=== PATIENT | male | born 1990 | race Caucasian/White ===

== ENCOUNTER 2018-06-10 17:00 | Emergency (ER) | payer OTHER ==
[~2018-06-10] VITALS: Wt 79.4 kg
[2018-06-10] MEDS ORDERED: ANAPROX DS550 MG PO (17:49)
== END 2018-06-10 17:50 | disposition home or self-care (01) ==
LOC: ED 17:00
DX: S62.615A Displaced fracture of proximal phalanx of left ring finger, initial encounter for closed fracture (principal); F17.200 Nicotine dependence, unspecified, uncomplicated; W22.8XXA Striking against or struck by other objects, initial encounter; Y93.89 Activity, other specified; Y92.89 Other specified places as the place of occurrence of the external cause; Y99.8 Other external cause status